=== PATIENT | male | born 2000 | race Caucasian/White ===

== ENCOUNTER 2024-11-29 13:12 | Emergency (ER) | payer MEDICAID, OTHER ==
[~2024-11-29] VITALS: Ht 180.3 cm; Wt 85.5 kg
[2024-11-29 13:29] VITALS: TEMP 97.8
[2024-11-29] MEDS: ONDANSETRON 4 MG TABLET PO ONE (14:06)
[2024-11-29] MEDS: FAMOTIDINE 20 MG TABLET PO ONE (14:06)
[2024-11-29 14:22] LABS: BASOPHILS % (AUTO) 0.2 % (0.0-2.0); EOSINOPHILS % (AUTO) 0 % (1.0-6.0); HEMATOCRIT 46.7 % (41-53); HEMOGLOBIN 15.6 g/dL (13.5-17.5); LYMPHOCYTES % (AUTO) 11.2 % (22.0-44.0); MEAN CORPUSCULAR HEMOGLOBIN 28.7 pg (26.0-34.0); MEAN CORPUSCULAR HGB CONC 33.5 G/dL (31.0-37.0); MEAN CORPUSCULAR VOLUME 86 fL (80-100); MONOCYTES % (AUTO) 10.6 % (2.0-9.0); PLATELET COUNT (AUTO) 196 K/uL (150-450); RED BLOOD CELL COUNT(AUTO) 5.44 MIL/uL (4.50-5.90); RED CELL DISTRIBUTION WIDTH 13.3 % (11.5-14.5)
[2024-11-29 14:31] LABS: ANION GAP 10 mmol/L (8-16); CALCIUM, TOTAL 9.2 mg/dL (8.8-10.5); CARBON DIOXIDE 27 mmol/L (22-29); CHLORIDE 100 mmol/L (98-107); CREATININE 0.78 mg/dL (0.60-1.30); GLOMERULAR FILTR. RATE CALC > 60 mL/min (>60); GLUCOSE,RANDOM 84 mg/dL (70-110); LIPASE 20 U/L (16-77); POTASSIUM 3.7 mmol/L (3.5-5.1); SODIUM SERUM 137 mmol/L (136-145); UREA NITROGEN, BLOOD 14 mg/dL (7-18)
[2024-11-29 14:35] LABS: ALBUMIN 3.8 g/dL (3.4-5.0); BILIRUBIN,DIRECT 0.2 mg/dL (0.00-0.20); BILIRUBIN,TOTAL 0.9 mg/dL (0.1-1.0)
[2024-11-29] MEDS: MAG HYDROX/ALUMINUM HYD/SIMETH ES 30 ML SUSPENSION UDCUP PO ONE (14:51)
[2024-11-29 15:20] VITALS: BP 133/86; PULSE 84; RESP 18; O2SAT 98
[2024-11-29] MEDS ORDERED: FAMO20 PO (16:05)
== END 2024-11-29 16:18 | disposition home or self-care (01) ==
LOC: EMS 13:16
DX: K21.9 Gastro-esophageal reflux disease without esophagitis (principal); J45.909 Unspecified asthma, uncomplicated; R07.9 Chest pain, unspecified; R11.2 Nausea with vomiting, unspecified
CPT/HCPCS: 99284; 80048; 80076; 83690; 85025; 36415; Q0162